=== PATIENT | female | born 1980 | race Caucasian/White ===

== ENCOUNTER 2023-12-08 11:22 | Outpatient (CLI) | payer MEDICAID, SELFPAY ==
--- NOTE | 2023-12-08 11:00 | MM_ITS ---
WS: [id number] SCREENING DIGITAL BREAST TOMOSYNTHESIS MAMMOGRAM WITH CAD HISTORY: SCREENING COMPARISON: None available. Bilateral CC and MLO with tomosynthesis and synthetic mammography submitted. Computer aided detection analyzed. Breast composition: There are scattered areas of fibroglandular density. Focal area of architectural distortion and asymmetry in the posterior RIGHT breast just medial to the nipple line. Incompletely v isualized on the CC projection. There is slight distortion. Minimal mass associated with the distorti on. No additional abnormality. MM/MM scr BI tomosynthesis [id number] IMPRESSION: BI-RADS: 0 - Incomplete: Need additional imaging evaluation. FOLLOW UP: Need Additional Imaging RIGHT breast: Spot compression views (CC and MLO). True ML. Ultrasound to follo w if abnormality persists.
== END 2023-12-08 11:23 | disposition home or self-care (01) ==
LOC: MOBLMAM 11:35
PROVIDERS: PCP Nurse Practitioner Family; Visit Provider Nurse Practitioner Family
DX: Z12.31 Encounter for screening mammogram for malignant neoplasm of breast (principal); R92.323 Mammographic fibroglandular density, bilateral breasts; N64.89 Other specified disorders of breast
CPT/HCPCS: 77063; 77067